=== PATIENT | female | born 1960 | race African-American/Black ===

== ENCOUNTER 2021-04-09 10:15 | Day surgery (SDC) | payer OTHER ==
[2021-04-06 12:39] VITALS: BMI 30.2
[2021-04-09 10:51] VITALS: TEMP 97.8
[2021-04-09 12:10] VITALS: BP 110/71; PULSE 65
== END 2021-04-09 13:00 | disposition home or self-care (01) ==
LOC: FASU-ENDO 10:15
PROVIDERS: ATTEND Internal Medicine Gastroenterology
PROC: 0DBN8ZX Excision of Sigmoid Colon, Via Natural or Artificial Opening Endoscopic, Diagnostic (ICD-10-PCS; principal; 2021-04-09 11:31)
DX: Z86.010 Personal history of colon polyps (principal); D12.7 Benign neoplasm of rectosigmoid junction; D17.79 Benign lipomatous neoplasm of other sites; K57.30 Diverticulosis of large intestine without perforation or abscess without bleeding; K64.2 Third degree hemorrhoids
CPT/HCPCS: 88305-TC

== ENCOUNTER 2021-05-25 09:02 | Day surgery (SDC) | payer OTHER ==
[2021-05-25 09:47] VITALS: TEMP 98.1; BMI 30.2
[2021-05-25 11:27] VITALS: BP 112/70; PULSE 66
== END 2021-05-25 11:25 | disposition home or self-care (01) ==
LOC: FASU-ENDO 09:02
PROVIDERS: ATTEND Internal Medicine Gastroenterology
PROC: 0DB68ZX Excision of Stomach, Via Natural or Artificial Opening Endoscopic, Diagnostic (ICD-10-PCS; 2021-05-25)
PROC: 0DB48ZX Excision of Esophagogastric Junction, Via Natural or Artificial Opening Endoscopic, Diagnostic (ICD-10-PCS; 2021-05-25)
PROC: 0DB98ZX Excision of Duodenum, Via Natural or Artificial Opening Endoscopic, Diagnostic (ICD-10-PCS; principal; 2021-05-25 10:40)
DX: Z87.19 Personal history of other diseases of the digestive system (principal); K29.50 Unspecified chronic gastritis without bleeding; K31.9 Disease of stomach and duodenum, unspecified; K22.70 Barrett's esophagus without dysplasia; K21.00 Gastro-esophageal reflux disease with esophagitis, without bleeding
CPT/HCPCS: 88305-TC; 88342-TC

== ENCOUNTER 2022-04-08 08:31 | Day surgery (SDC) | payer OTHER ==
[2022-04-06 13:17] VITALS: BMI 28.7
[2022-04-08 10:35] VITALS: TEMP 97.7
[2022-04-08 10:51] VITALS: BP 121/67; PULSE 74
== END 2022-04-08 11:19 | disposition home or self-care (01) ==
LOC: FASU-ENDO 08:31
PROVIDERS: ATTEND Internal Medicine Gastroenterology
PROC: 0DB68ZX Excision of Stomach, Via Natural or Artificial Opening Endoscopic, Diagnostic (ICD-10-PCS; 2022-04-08)
PROC: 0DB48ZX Excision of Esophagogastric Junction, Via Natural or Artificial Opening Endoscopic, Diagnostic (ICD-10-PCS; 2022-04-08)
PROC: 0DB98ZX Excision of Duodenum, Via Natural or Artificial Opening Endoscopic, Diagnostic (ICD-10-PCS; principal; 2022-04-08 10:01)
DX: K29.50 Unspecified chronic gastritis without bleeding (principal); K21.00 Gastro-esophageal reflux disease with esophagitis, without bleeding; R10.9 Unspecified abdominal pain
CPT/HCPCS: 88305-TC; 88342-TC

== ENCOUNTER 2022-12-16 08:56 | Day surgery (SDC) | payer OTHER ==
[2022-12-08 10:25] VITALS: BMI 30.2
[2022-12-16 11:46] VITALS: RESP 16; TEMP 97.7
[2022-12-16 11:49] VITALS: BP 125/65; PULSE 78
== END 2022-12-16 12:40 | disposition home or self-care (01) ==
LOC: FASU-ENDO 08:56
PROVIDERS: ATTEND Internal Medicine Gastroenterology
PROC: 0DB68ZX Excision of Stomach, Via Natural or Artificial Opening Endoscopic, Diagnostic (ICD-10-PCS; 2022-12-16)
PROC: 0DB48ZX Excision of Esophagogastric Junction, Via Natural or Artificial Opening Endoscopic, Diagnostic (ICD-10-PCS; 2022-12-16)
PROC: 0DB98ZX Excision of Duodenum, Via Natural or Artificial Opening Endoscopic, Diagnostic (ICD-10-PCS; principal; 2022-12-16 10:48)
DX: Z13.810 Encounter for screening for upper gastrointestinal disorder (principal); K29.50 Unspecified chronic gastritis without bleeding; K20.90 Esophagitis, unspecified without bleeding
CPT/HCPCS: 88305-TC; 88342-TC

== ENCOUNTER 2024-12-04 08:46 | Day surgery (SDC) | payer OTHER, MEDICARE ==
[2024-11-28 13:39] VITALS: BMI 29.5
[2024-12-04] MEDS ORDERED: LIDOCAINE HCL/PF 2% SDV 5ML VIAL ONE ×2 (10:09→10:19)
[2024-12-04] MEDS ORDERED: PROPOFOL 40 ML ONE (10:09)
[2024-12-04] MEDS ORDERED: PROPOFOL 80 ML ONE (10:19)
[2024-12-04 10:44] VITALS: RESP 18; TEMP 98
[2024-12-04 11:06] VITALS: BP 124/57; PULSE 69
== END 2024-12-04 11:00 | disposition home or self-care (01) ==
LOC: FASU-ENDO 08:46
PROVIDERS: ATTEND Internal Medicine Gastroenterology
PROC: 0DJD8ZZ Inspection of Lower Intestinal Tract, Via Natural or Artificial Opening Endoscopic (ICD-10-PCS; principal; 2024-12-04 10:11)
DX: K92.1 Melena (principal); K64.2 Third degree hemorrhoids